=== PATIENT | female | born 1980 | race Two or more races ===

== ENCOUNTER 2024-03-05 02:47 | Emergency (ER) | payer MEDICAID, OTHER ==
[~2024-03-05] VITALS: Ht 157.5 cm; Wt 122.7 kg
[2024-03-05 02:48] VITALS: TEMP 97.7
[2024-03-05 03:52] LABS: ALANINE AMINOTRANSFERASE 69 U/L (12-78); ALBUMIN 2.9 g/dL (3.4-5.0); ALKALINE PHOSPHATASE 103 U/L (46-116); ANION GAP 5 mmol/L (8-16); ASPARTATE AMINOTRANSFERASE 62 U/L (15-37); BILIRUBIN,TOTAL 0.1 mg/dL (0.1-1.0); CARBON DIOXIDE 29 mmol/L (22-29); CHLORIDE 102 mmol/L (98-107); CREATININE 0.64 mg/dL (0.60-1.30); GLOMERULAR FILTR. RATE CALC > 60 mL/min (>60); GLUCOSE,RANDOM 97 mg/dL (70-110); SODIUM SERUM 136 mmol/L (136-145); TOTAL PROTEIN, SERUM 7.2 g/dL (6.4-8.2); UREA NITROGEN, BLOOD 5 mg/dL (7-18)
[2024-03-05 03:59] LABS: BASOPHILS % (AUTO) 0.5 % (0.0-2.0); EOSINOPHILS % (AUTO) 0.8 % (1.0-6.0); HEMATOCRIT 36.6 % (36-46); HEMOGLOBIN 11.9 g/dL (12.0-16.0); LYMPHOCYTES # (AUTO) 1.6 K/uL (1.0-4.8); LYMPHOCYTES % (AUTO) 24.8 % (22.0-44.0); MEAN CORPUSCULAR HEMOGLOBIN 26.4 pg (26.0-34.0); MEAN CORPUSCULAR HGB CONC 32.5 G/dL (31.0-37.0); MEAN CORPUSCULAR VOLUME 81 fL (80-100); MONOCYTES # (AUTO) 0.4 K/uL (0.1-1.0); MONOCYTES % (AUTO) 6.8 % (2.0-9.0); NEUTROPHILS # (AUTO) 4.3 K/uL (1.8-7.7); NEUTROPHILS % (AUTO) 67.1 % (40.0-70.0); PLATELET COUNT (AUTO) 431 K/uL (150-450); RED CELL DISTRIBUTION WIDTH 16.9 % (11.5-14.5); WHITE BLOOD COUNT (AUTO) 6.5 K/uL (4.5-11.0)
[2024-03-05 04:00] LABS: CALCIUM, TOTAL 7.9 mg/dL (8.8-10.5)
[2024-03-05 04:07] LABS: POTASSIUM 2.9 mmol/L (3.5-5.1)
[2024-03-05] MEDS: PANTOPRAZOLE SODIUM 40 MG/VIAL IVP ONE (04:18)
[2024-03-05] MEDS: ONDANSETRON HCL 4 MG/2 ML VIAL IVP ONE (04:18)
[2024-03-05] MEDS: MAG HYDROX/ALUMINUM HYD/SIMETH ES 30 ML SUSPENSION UDCUP PO ONE (04:19)
[2024-03-05] MEDS: POTASSIUM CHLORIDE 10% 40 MEQ/30 ML LIQUID UDCUP PO ONE ×2 (04:19→06:08)
[2024-03-05] MEDS: FentaNYL CITRATE PF 100 MCG/2 ML VIAL IVP ONE (05:07)
[2024-03-05 06:44] VITALS: BP 118/84; PULSE 77; RESP 18; O2SAT 98
[2024-03-05] MEDS: FAMOTIDINE 20 MG/2 ML VIAL IVP ONE (09:09)
[2024-03-05] MEDS ORDERED: FAMO20 PO (10:05)
[2024-03-05] MEDS: MORPHINE SULFATE 4 MG/ML SYRINGE IVP ONE (10:07)
[2024-03-06] MEDS ORDERED: SODIUM CHLORIDE 0.9% 100 ML ONE (23:04)
[2024-03-06] MEDS ORDERED: IOHEXOL 350 MG/ML 100 ML VIAL ONE (23:05)
== END 2024-03-05 10:43 | disposition home or self-care (01) ==
LOC: EMS 02:48
DX: K85.90 Acute pancreatitis without necrosis or infection, unspecified (principal); E87.6 Hypokalemia; F12.90 Cannabis use, unspecified, uncomplicated; F17.210 Nicotine dependence, cigarettes, uncomplicated; Z85.3 Personal history of malignant neoplasm of breast; Z87.442 Personal history of urinary calculi; Z90.49 Acquired absence of other specified parts of digestive tract
CPT/HCPCS: 99285; 96374; 96375; 76700; 71045; 80048; 80076; 85025; 36415; 93005; J3490; J3010; J2270; J2405; J2470; J7050

== ENCOUNTER 2024-03-06 21:21 | Inpatient (IN) | payer MEDICAID ==
[~2024-03-06] VITALS: Ht 157.5 cm; Wt 98.2 kg
[~2024-03-06 21:21] MED LIST: FAMO20 PO
[2024-03-06 22:21] LABS: BASOPHILS % (AUTO) 0.3 % (0.0-2.0); EOSINOPHILS % (AUTO) 0.6 % (1.0-6.0); HEMATOCRIT 39.5 % (36-46); HEMOGLOBIN 12.5 g/dL (12.0-16.0); LYMPHOCYTES # (AUTO) 2.1 K/uL (1.0-4.8); LYMPHOCYTES % (AUTO) 26.6 % (22.0-44.0); MEAN CORPUSCULAR HEMOGLOBIN 25.5 pg (26.0-34.0); MEAN CORPUSCULAR HGB CONC 31.5 G/dL (31.0-37.0); MEAN CORPUSCULAR VOLUME 81 fL (80-100); MONOCYTES # (AUTO) 0.5 K/uL (0.1-1.0); MONOCYTES % (AUTO) 6.1 % (2.0-9.0); NEUTROPHILS # (AUTO) 5.1 K/uL (1.8-7.7); NEUTROPHILS % (AUTO) 66.4 % (40.0-70.0); PLATELET COUNT (AUTO) 481 K/uL (150-450); RED BLOOD CELL COUNT(AUTO) 4.89 MIL/uL (4.00-5.20); RED CELL DISTRIBUTION WIDTH 17.2 % (11.5-14.5); WHITE BLOOD COUNT (AUTO) 7.7 K/uL (4.5-11.0)
[2024-03-06] MEDS ORDERED: KETOROLAC TROMETHAMINE 30 MG/ML VIAL IVP ONE (22:30)
[2024-03-06] MEDS: ONDANSETRON HCL 4 MG/2 ML VIAL IVP ONE (22:32)
[2024-03-06] MEDS: KETOROLAC TROMETHAMINE 15 MG/ML VIAL IVP ONE (22:32)
[2024-03-06] MEDS: SODIUM CHLORIDE 0.9% 1,000 ML IV ONE (22:32)
[2024-03-06] MEDS: ACETAMINOPHEN 500 MG TABLET PO ONE (22:33)
[2024-03-06 22:36] LABS: ANION GAP 9 mmol/L (8-16); CALCIUM, TOTAL 8.4 mg/dL (8.8-10.5); CARBON DIOXIDE 26 mmol/L (22-29); CHLORIDE 103 mmol/L (98-107); CREATININE 0.71 mg/dL (0.60-1.30); GLOMERULAR FILTR. RATE CALC > 60 mL/min (>60); GLUCOSE,RANDOM 93 mg/dL (70-110); POTASSIUM 3.7 mmol/L (3.5-5.1); SODIUM SERUM 138 mmol/L (136-145); UREA NITROGEN, BLOOD 5 mg/dL (7-18)
[2024-03-06 22:42] LABS: ALANINE AMINOTRANSFERASE 55 U/L (12-78); ALBUMIN 3.1 g/dL (3.4-5.0); ALKALINE PHOSPHATASE 117 U/L (46-116); ASPARTATE AMINOTRANSFERASE 40 U/L (15-37); BILIRUBIN,TOTAL 0.2 mg/dL (0.1-1.0); LIPASE 48 U/L (16-77); TOTAL PROTEIN, SERUM 7.8 g/dL (6.4-8.2)
[2024-03-07] MEDS ORDERED: ONDANSETRON HCL 4 MG/2 ML VIAL IVP PRN
[2024-03-07] MEDS: RINGERS SOLUTION,LACTATED 1,000 ML IV ONE (00:29)
[2024-03-07 00:46] LABS: APPEARANCE,URINE CLEAR (CLEAR); BILIRUBIN,URINE NEGATIVE (NEGATIVE); COLOR,URINE LIGHT YELLOW (YELLOW); GLUCOSE, URINE (UA) NEGATIVE (NEGATIVE); KETONES,URINE NEGATIVE (NEGATIVE); LEUKOCYTE ESTERASE ,URINE NEGATIVE (NEGATIVE); NITRATE,URINE NEGATIVE (NEGATIVE); OCCULT BLOOD,URINE NEGATIVE (NEGATIVE); PROTEIN,URINE 30-70 mg/dL (NEGATIVE); UROBILINOGEN,URINE <=1.0 mg/dL (<=1.0)
[2024-03-07 02:38] VITALS: BP 105/64; PULSE 74; RESP 20; TEMP 98.2; O2SAT 96
[2024-03-07] MEDS: ACETAMINOPHEN 325 MG TABLET PO PRN (02:40)
[2024-03-07 07:06] LABS: ANION GAP 4 mmol/L (8-16); CALCIUM, TOTAL 7.8 mg/dL (8.8-10.5); CARBON DIOXIDE 26 mmol/L (22-29); CHLORIDE 104 mmol/L (98-107); CREATININE 0.59 mg/dL (0.60-1.30); GLOMERULAR FILTR. RATE CALC > 60 mL/min (>60); GLUCOSE,RANDOM 92 mg/dL (70-110); POTASSIUM 3.1 mmol/L (3.5-5.1); SODIUM SERUM 134 mmol/L (136-145); UREA NITROGEN, BLOOD 7 mg/dL (7-18)
[2024-03-07 07:30] LABS: BASOPHILS % (AUTO) 0.5 % (0.0-2.0); EOSINOPHILS % (AUTO) 1.5 % (1.0-6.0); HEMOGLOBIN 11.3 g/dL (12.0-16.0); LYMPHOCYTES # (AUTO) 2.6 K/uL (1.0-4.8); LYMPHOCYTES % (AUTO) 34.5 % (22.0-44.0); MEAN CORPUSCULAR HEMOGLOBIN 26.1 pg (26.0-34.0); MEAN CORPUSCULAR HGB CONC 32.1 G/dL (31.0-37.0); MEAN CORPUSCULAR VOLUME 81 fL (80-100); MONOCYTES # (AUTO) 0.7 K/uL (0.1-1.0); MONOCYTES % (AUTO) 9.8 % (2.0-9.0); NEUTROPHILS # (AUTO) 4.1 K/uL (1.8-7.7); NEUTROPHILS % (AUTO) 53.7 % (40.0-70.0); PLATELET COUNT (AUTO) 390 K/uL (150-450); RED BLOOD CELL COUNT(AUTO) 4.32 MIL/uL (4.00-5.20); WHITE BLOOD COUNT (AUTO) 7.6 K/uL (4.5-11.0)
[2024-03-07 08:11] VITALS: BP 108/68; PULSE 60; RESP 20; TEMP 97.7; O2SAT 97
[2024-03-07] MEDS: DOCUSATE SODIUM 100 MG CAPSULE PO SCH (09:07)
[2024-03-07] MEDS: RINGERS SOLUTION,LACTATED 1,000 ML IV SCH (12:12)
[2024-03-07] MEDS: KETOROLAC TROMETHAMINE 15 MG/ML VIAL IVP SCH (12:12)
[2024-03-07] MEDS ORDERED: POTASSIUM CHL 10 MEQ/WATER 50 ML IV PRN ×2 (12:15→14:30)
[2024-03-07] MEDS: POTASSIUM CHLORIDE 20 MEQ ER TABLET PO PRN (12:17)
[2024-03-07] MEDS ORDERED: POTASSIUM CHLORIDE 20 MEQ ER TABLET PO PRN (14:30)
[2024-03-07] MEDS ORDERED: MAGNESIUM SULFATE 4 GM/WATER 100 ML IV PRN (14:30)
[2024-03-07] MEDS ORDERED: MAGNESIUM SULFATE 2 GM/WATER 50 ML IV PRN (14:30)
[2024-03-07] MEDS ORDERED: MAGNESIUM OXIDE 400 MG TABLET PO PRN (14:30)
[2024-03-07] MEDS: DEXTROSE 5%-LACTATED RINGERS 1,000 ML IV SCH (14:42)
[2024-03-07] MEDS ORDERED: KETOROLAC TROMETHAMINE 15 MG/ML VIAL IVP PRN (15:15)
[2024-03-07 15:23] VITALS: BP 112/72; PULSE 68; RESP 18; TEMP 98; O2SAT 97
[2024-03-07] MEDS ORDERED: MEBROFENIN TC99M/MCL ISOTOPE 1 EA INJ INJ ONE (15:35)
[2024-03-07 19:28] VITALS: BP 100/52; PULSE 72; RESP 18; TEMP 98.8; O2SAT 95
[2024-03-07] MEDS: FAMOTIDINE 20 MG TABLET PO SCH (20:01)
[2024-03-07] MEDS: KETOROLAC TROMETHAMINE 15 MG/ML VIAL IVP PRN (23:26)
[2024-03-07] MEDS: HEPARIN SODIUM,PORCINE 5,000 UNITS/ML VIAL SQ SCH (23:26)
[2024-03-08 05:00] VITALS: BP 121/69; PULSE 69; RESP 18; TEMP 98; O2SAT 99
[2024-03-08 08:24] VITALS: BP 128/60; PULSE 63; RESP 19; TEMP 98.1; O2SAT 98
== END 2024-03-08 12:40 | disposition home or self-care (01) | DRG 241 ==
LOC: EMS 21:21 → EDH 03-07 01:06 → 4E 03-07 02:00
PROVIDERS: ADMIT Internal Medicine; ATTEND Internal Medicine
DX: K29.70 Gastritis, unspecified, without bleeding (principal); K76.0 Fatty (change of) liver, not elsewhere classified; E66.01 Morbid (severe) obesity due to excess calories; K80.20 Calculus of gallbladder without cholecystitis without obstruction; F10.20 Alcohol dependence, uncomplicated; F17.200 Nicotine dependence, unspecified, uncomplicated; Z85.3 Personal history of malignant neoplasm of breast; Z87.442 Personal history of urinary calculi; Z90.49 Acquired absence of other specified parts of digestive tract; Z68.39 Body mass index [BMI] 39.0-39.9, adult
CPT/HCPCS: 74177; 76705; 78226; 80048; 80076; 82040; 83690; 83735; 84132; 84703; 85025; 99285; A9537; G0378; J1644; J1885; J2405; J7030; J7120

== ENCOUNTER 2024-04-07 22:44 | Emergency (ER) | payer MEDICAID ==
[~2024-04-07] VITALS: Ht 157.5 cm; Wt 84.1 kg
[2024-04-07 22:48] VITALS: TEMP 98.3
[2024-04-07 23:36] LABS: BASOPHILS % (AUTO) 0.2 % (0.0-2.0); EOSINOPHILS % (AUTO) 0.3 % (1.0-6.0); HEMATOCRIT 38.1 % (36-46); HEMOGLOBIN 11.9 g/dL (12.0-16.0); LYMPHOCYTES # (AUTO) 1.7 K/uL (1.0-4.8); LYMPHOCYTES % (AUTO) 14.8 % (22.0-44.0); MEAN CORPUSCULAR HEMOGLOBIN 25.3 pg (26.0-34.0); MEAN CORPUSCULAR HGB CONC 31.3 G/dL (31.0-37.0); MEAN CORPUSCULAR VOLUME 81 fL (80-100); MONOCYTES # (AUTO) 0.6 K/uL (0.1-1.0); MONOCYTES % (AUTO) 5.4 % (2.0-9.0); NEUTROPHILS # (AUTO) 9.2 K/uL (1.8-7.7); NEUTROPHILS % (AUTO) 79.3 % (40.0-70.0); PLATELET COUNT (AUTO) 400 K/uL (150-450); RED BLOOD CELL COUNT(AUTO) 4.71 MIL/uL (4.00-5.20); RED CELL DISTRIBUTION WIDTH 17.5 % (11.5-14.5); WHITE BLOOD COUNT (AUTO) 11.6 K/uL (4.5-11.0)
[2024-04-07 23:43] LABS: ANION GAP 9 mmol/L (8-16); CALCIUM, TOTAL 8.8 mg/dL (8.8-10.5); CARBON DIOXIDE 29 mmol/L (22-29); CHLORIDE 102 mmol/L (98-107); CREATININE 0.59 mg/dL (0.60-1.30); GLOMERULAR FILTR. RATE CALC > 60 mL/min (>60); GLUCOSE,RANDOM 114 mg/dL (70-110); POTASSIUM 3.6 mmol/L (3.5-5.1); SODIUM SERUM 140 mmol/L (136-145); UREA NITROGEN, BLOOD 7 mg/dL (7-18)
[2024-04-07 23:49] LABS: ALANINE AMINOTRANSFERASE 74 U/L (12-78); ALBUMIN 3.1 g/dL (3.4-5.0); ALKALINE PHOSPHATASE 90 U/L (46-116); ASPARTATE AMINOTRANSFERASE 98 U/L (15-37); BILIRUBIN,TOTAL 0.7 mg/dL (0.1-1.0); TOTAL PROTEIN, SERUM 7.4 g/dL (6.4-8.2)
[2024-04-08 00:07] LABS: HCG,QUANTITATIVE < 1 mIU/mL (0-6)
[2024-04-08 00:08] LABS: ALCOHOL, BLOOD (SERUM) < 3 mg/dL (0-10)
[2024-04-08] MEDS: KETOROLAC TROMETHAMINE 30 MG/ML VIAL IVP ONE (00:10)
[2024-04-08] MEDS: FAMOTIDINE 20 MG/2 ML VIAL IVP ONE (00:10)
[2024-04-08] MEDS: ONDANSETRON HCL 4 MG/2 ML VIAL IVP ONE (00:11)
[2024-04-08] MEDS: SODIUM CHLORIDE 0.9% 1,000 ML IV ONE (00:11)
[2024-04-08 01:09] LABS: LIPASE 38 U/L (16-77)
[2024-04-08] MEDS ORDERED: IOHEXOL 350 MG/ML 100 ML VIAL ONE (01:33)
[2024-04-08 02:53] VITALS: BP 126/82; PULSE 72; RESP 14; O2SAT 98
[2024-04-08] MEDS ORDERED: ONDA-104 PO (03:51)
== END 2024-04-08 04:41 | disposition home or self-care (01) ==
LOC: EMS 22:45
DX: R10.84 Generalized abdominal pain (principal); R11.2 Nausea with vomiting, unspecified; F17.210 Nicotine dependence, cigarettes, uncomplicated; F12.90 Cannabis use, unspecified, uncomplicated; Z85.3 Personal history of malignant neoplasm of breast; Z87.442 Personal history of urinary calculi; Z90.49 Acquired absence of other specified parts of digestive tract; Z98.890 Other specified postprocedural states
CPT/HCPCS: 99285; 80048; 80076; 83690; 84702; 85025; 36415; 74177; 96374; 96375; 96361; G0480; J1885; Q9967; J3490; J2405; J7030

== ENCOUNTER → 2024-05-20 | Emergency (ER) | payer MEDICAID ==
[~2024-05-20] MED LIST changes: +ONDA-104 PO
== END | disposition left against medical advice (07) ==
LOC: EMS 18:27
DX: Z53.21 Procedure and treatment not carried out due to patient leaving prior to being seen by health care provider (principal)

== ENCOUNTER 2025-02-07 23:51 | Emergency (ER) | payer MEDICAID | END 2025-02-08 00:23 | disposition left against medical advice (07) | LOC: EMS 23:51 | DX: R07.89 Other chest pain (principal); R06.02 Shortness of breath; Z53.21 Procedure and treatment not carried out due to patient leaving prior to being seen by health care provider ==